=== PATIENT | male | born 1995 | race African-American/Black ===

== ENCOUNTER 2017-06-22 11:57 | Emergency (ER) | payer SELFPAY ==
--- NOTE | 2017-06-22 13:00 | EDM.PDOC ---
ED HPI GENERAL MEDICAL PROBLEM - General Chief Complaint: Syncope Stated Complaint: SYNCOPE Time Seen by Provider: 06/22/17 12:27 Source of Information: Reports: Patient, Other (Coworker) History Limitations: Reports: No Limitations - History of Present Illness INITIAL COMMENTS - FREE TEXT/NARRATIVE: Patient is a 21-year-old male who presents to the ED after experiencing a syncopal episode while working. 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 Got back up and felt dizzy again and a co worker helped by holding him against the fryer until he awoke. Patient does not believe he was completely unconscious. Co worker who was present does not believe he was as well. Patient was moving his head while being held. Patient did not bite his tongue nor have any incontinence to urine and/or stool. He has no history of seizures. Patient did not hit his head nor neck and denies any complaints. Patient has a long history of psych issues including: Schizophrenia, bipolar, anxiety/depression, and mood disorder. He is supposed to be on 12 different meds but discontinued these quite some time ago. Additional history includes asthma and sleep apnea. Patient is on no medications at this time. Surgical history: patient had upper left lobectomy as a child for unknown reason. Patient continues to smoke 1-2 packs a day. No alcohol use. Smokes marijuana frequently. Denies any other recreation drugs. - Related Data Allergies Allergy/AdvReac Type Severity Reaction Status Date / Time No Known Allergies Allergy Verified 06/22/17 12:12 Home Meds: Home Meds . [No Known Home Meds] 06/22/17 [History] Past Medical History HEENT History: Reports: Impaired Vision Other HEENT History: wears corrective lenses Gastrointestinal History: Reports: Other (See Below) Other Gastrointestinal History: gastro-ulcers Psychiatric History: Reports: Anxiety - Past Surgical History Respiratory Surgical History: Reports: Other (See Below) Other Respiratory Surgeries/Procedures: left lobectomy, patient states he has a quarter of his left lung remaining GI Surgical History: Reports: None Social & Family History - Tobacco Use Smoking Status *Q: Current Every Day Smoker Years of Tobacco use: 3 Packs/Tins Daily: 2 Used Tobacco, but Quit: No - Caffeine Use Caffeine Use: Reports: Soda - Recreational Drug Use Recreational Drug Use: No ED ROS GENERAL - Review of Systems Review Of Systems: See Below Constitutional: Denies: Fever, Chills, Weakness, Fatigue, Decreased Appetite HEENT: Reports: No Symptoms Respiratory: Reports: No Symptoms Cardiovascular: Reports: No Symptoms GI/Abdominal: Reports: No Symptoms : Reports: No Symptoms Musculoskeletal: Reports: No Symptoms Skin: Reports: No Symptoms Neurological: Reports: Syncope. Denies: Confusion, Dizziness, Headache, Numbness, Tingling, Difficulty Walking, Weakness Psychiatric: Reports: No Symptoms - Physical Exam Exam: See Below Exam Limited By: No Limitations General Appearance: Alert, WD/WN, No Apparent Distress Eye Exam: Bilateral Eye: EOMI, Normal Inspection, PERRL Ears: Hearing Grossly Normal Nose: Normal Inspection Throat/Mouth: Normal Inspection, Normal Oropharynx, Normal Voice, No Airway Compromise Head Exam: Atraumatic, Normocephalic Neck: Normal Inspection, Supple, Non-Tender, Full Range of Motion Respiratory/Chest: No Respiratory Distress, Lungs Clear, Normal Breath Sounds, No Accessory Muscle Use, Chest Non-Tender Cardiovascular: Normal Peripheral Pulses, Regular Rate, Rhythm, Systolic Murmur (2/6 appears to be mitral in origin. ) GI/Abdominal: Normal Bowel Sounds, Soft, Non-Tender, No Organomegaly Neuro Exam (Abbreviated): Alert, Oriented, CN II-XII Intact, Normal Cognition, No Motor/Sensory Deficits Back Exam: Normal Inspection, Vertebral Tenderness Extremities: Normal Inspection, Non-Tender, No Pedal Edema Psychiatric: Normal Affect, Normal Mood Skin Exam: Warm, Dry, Intact, Normal Color, No Rash Course - Vital Signs Last Recorded V/S: Last Vital Signs Temp 97.8 F 06/22/17 12:08 Pulse 70 06/22/17 12:08 Resp 18 06/22/17 12:08 BP 125/67 06/22/17 12:08 Pulse Ox 100 06/22/17 12:08 Orthostatic Blood Pressure [ 116/72 Standing] Orthostatic Blood Pressure [ 109/81 Sitting] Orthostatic Blood Pressure [ 125/67 Supine] - Orders/Labs/Meds Orders: Active Orders 24 hr Category Date Time Status EKG Documentation Completion [RC] STAT Care 06/22/17 12:27 Active Orthostatic Vital Signs [RC] ASDIRECTED Care 06/22/17 13:00 Active DRUG SCREEN, URINE [URCHEM] Stat Lab 06/22/17 13:37 Ordered Labs: Laboratory Tests 06/22/17 06/22/17 06/22/17 Range/Units 12:40 12:40 13:37 WBC 6.91 (4.23-9.07) K/mm3 RBC 4.93 (4.63-6.08) M/mm3 Hgb 14.8 (13.7-17.5) gm/L Hct 43.1 (40.1-51.0) % MCV 87.4 (79.0-92.2) fl MCH 30.0 (25.7-32.2) pg MCHC 34.3 (32.2-35.5) g/dl RDW Std Deviation 42.6 (35.1-43.9) fL Plt Count 222 (163-337) K/mm3 MPV 9.4 (9.4-12.3) fl Neutrophils % (Manual) 60 (40-60) % Band Neutrophils % 0 (0-10) % Lymphocytes % (Manual) 27 (20-40) % Atypical Lymphs % 0 % Monocytes % (Manual) 10 (2-10) % Eosinophils % (Manual) 1 (0.8-7.0) % Basophils % (Manual) 2 H (0.2-1.2) Platelet Estimate Adequate RBC Morph Comment Normal Sodium 138 (136-145) mEq/L Potassium 4.2 (3.5-5.1) mEq/L Chloride 104 (98-107) mEq/L Carbon Dioxide 28 (21-32) mEq/L Anion Gap 10.2 (5-15) BUN 12 (7-18) mg/dL Creatinine 0.9 (0.7-1.3) mg/dL Est Cr Clr Drug Dosing 122.41 mL/min Estimated GFR (MDRD) > 60 (>60) mL/min BUN/Creatinine Ratio 13.3 L (14-18) Glucose 98 (74-106) mg/dL Calcium 9.3 (8.5-10.1) mg/dL Total Bilirubin 0.5 (0.2-1.0) mg/dL AST 13 L (15-37) U/L ALT 14 L (16-63) U/L Alkaline Phosphatase 64 (46-116) U/L Total Protein 6.8 (6.4-8.2) g/dl Albumin 4.2 (3.4-5.0) g/dl Globulin 2.6 gm/dL Albumin/Globulin Ratio 1.6 (1-2) TSH 3rd Generation 0.835 (0.516-4.13) uIU/mL Urine Color (Yellow) Urine Appearance (Clear) Urine pH (5.0-8.0) Ur Specific [place] (1.005-1.030) Urine Protein (Negative) Urine Glucose (UA) (Negative) Urine Ketones (Negative) Urine Occult Blood (Negative) Urine Nitrite (Negative) Urine Bilirubin (Negative) Urine Urobilinogen (0.2-1.0) Ur Leukocyte Esterase (Negative) Urine RBC (0-5) /hpf Urine WBC (0-5) /hpf Ur Epithelial Cells (0-5) /hpf Urine Bacteria (FEW) /hpf Urine Mucus (FEW) /hpf Urine Opiates Screen Negative (NEGATIVE) Ur Buprenorphine Scrn Negative (NEGATIVE) Ur Oxycodone Screen Negative (NEGATIVE) Urine Methadone Screen Negative (NEGATIVE) Ur Propoxyphene Screen Negative (NEGATIVE) Ur Barbiturates Screen Negative (NEGATIVE) Ur Tricyclics Screen Negative (NEGATIVE) Ur Phencyclidine Scrn Negative (NEGATIVE) Ur Amphetamine Screen Negative (NEGATIVE) U Methamphetamines Scrn Negative (NEGATIVE) U Benzodiazepines Scrn Negative (NEGATIVE) U Cocaine Metab Screen Negative (NEGATIVE) U Marijuana (THC) Screen Negative (NEGATIVE) Ethyl Alcohol 0.00 (0.00) gm% 06/22/17 Range/Units 13:37 WBC (4.23-9.07) K/mm3 RBC (4.63-6.08) M/mm3 Hgb (13.7-17.5) gm/L Hct (40.1-51.0) % MCV (79.0-92.2) fl MCH (25.7-32.2) pg MCHC (32.2-35.5) g/dl RDW Std Deviation (35.1-43.9) fL Plt Count (163-337) K/mm3 MPV (9.4-12.3) fl Neutrophils % (Manual) (40-60) % Band Neutrophils % (0-10) % Lymphocytes % (Manual) (20-40) % Atypical Lymphs % % Monocytes % (Manual) (2-10) % Eosinophils % (Manual) (0.8-7.0) % Basophils % (Manual) (0.2-1.2) Platelet Estimate RBC Morph Comment Sodium (136-145) mEq/L Potassium (3.5-5.1) mEq/L Chloride (98-107) mEq/L Carbon Dioxide (21-32) mEq/L Anion Gap (5-15) BUN (7-18) mg/dL Creatinine (0.7-1.3) mg/dL Est Cr Clr Drug Dosing mL/min Estimated GFR (MDRD) (>60) mL/min BUN/Creatinine Ratio (14-18) Glucose (74-106) mg/dL Calcium (8.5-10.1) mg/dL Total Bilirubin (0.2-1.0) mg/dL AST (15-37) U/L ALT (16-63) U/L Alkaline Phosphatase (46-116) U/L Total Protein (6.4-8.2) g/dl Albumin (3.4-5.0) g/dl Globulin gm/dL Albumin/Globulin Ratio (1-2) TSH 3rd Generation (0.516-4.13) uIU/mL Urine Color Yellow (Yellow) Urine Appearance Clear (Clear) Urine pH 7.5 (5.0-8.0) Ur Specific [place] 1.015 (1.005-1.030) Urine Protein Negative (Negative) Urine Glucose (UA) Negative (Negative) Urine Ketones Negative (Negative) Urine Occult Blood Negative (Negative) Urine Nitrite Negative (Negative) Urine Bilirubin Negative (Negative) Urine Urobilinogen 0.2 (0.2-1.0) Ur Leukocyte Esterase Negative (Negative) Urine RBC Not seen (0-5) /hpf Urine WBC Not seen (0-5) /hpf Ur Epithelial Cells Not seen (0-5) /hpf Urine Bacteria Not seen (FEW) /hpf Urine Mucus Not seen (FEW) /hpf Urine Opiates Screen (NEGATIVE) Ur Buprenorphine Scrn (NEGATIVE) Ur Oxycodone Screen (NEGATIVE) Urine Methadone Screen (NEGATIVE) Ur Propoxyphene Screen (NEGATIVE) Ur Barbiturates Screen (NEGATIVE) Ur Tricyclics Screen (NEGATIVE) Ur Phencyclidine Scrn (NEGATIVE) Ur Amphetamine Screen (NEGATIVE) U Methamphetamines Scrn (NEGATIVE) U Benzodiazepines Scrn (NEGATIVE) U Cocaine Metab Screen (NEGATIVE) U Marijuana (THC) Screen (NEGATIVE) Ethyl Alcohol (0.00) gm% - Re-Assessments/Exams Free Text/Narrative Re-Assessment/Exam: Will obtain basic labs including: CBC, chem 14, urine drug tox, TSH, UA, serum EtOH, and also EKG. EKG sinus bradycardia at a rate of 58 with GA interval 165 and QTC 390. No acute ST changes noted. Orthostatic vitals: negative, patient had no symptoms. Labs reviewed: CBC and chemistry panel were essentially normal. TSH 0.835. Urine drug tox was negative. Serum EtOH is pending. Patient has been up and about with no issues. He was wrestling around with his friend while in the ED room awaiting for results. He has been drinking plenty of fluids. Urinated. He has no dizziness and or any additional complaints. Will discharge patient home with instructions as documented. Suspect cause of dizziness was related to a vasovagal episode. Due to heart murmur on examination with no clear diagnosis. Will go ahead and order an echocardiogram on a outpatient basis. Departure - Departure Time of Disposition: 14:02 Disposition: Home, Self-Care 01 Condition: Good Clinical Impression: Vasovagal syncope, Heart murmur, systolic - Discharge Information Instructions: Dehydration, Adult, [id number], Vasovagal Syncope, Adult Referrals: PCP,None [Primary Care Provider] - Forms: ED Department Discharge, ED Return to Work/School Form Additional Instructions: Heart murmur noted on physicial examination. Thus echocardiogram will be ordered on a outpatient basis. Believe cause of syncope/near syncopal episode was associated with a vasal vagal. Push the fluids. With body position changes allow some time for your body to obtain equilibrium if you become dizzy. Push the fluids. Eat a balanced diet. If you become dizzy sit back down or lay down and allow symptoms to subside. Refrain from smoking, using marijuana, and or alcohol use. Call and make an appointment this Friday to be evaluated and to establish care with a medical provider at [facility]. Return to the ED if you develop any new or worsening symptoms. - My Orders Last 24 Hours: My Active Orders 06/22/17 12:27 EKG Documentation Completion [RC] STAT 06/22/17 13:00 Orthostatic Vital Signs [RC] ASDIRECTED 06/22/17 13:37 DRUG SCREEN, URINE [URCHEM] Stat - Assessment/Plan Last 24 Hours: My Active Orders 06/22/17 12:27 EKG Documentation Completion [RC] STAT 06/22/17 13:00 Orthostatic Vital Signs [RC] ASDIRECTED 06/22/17 13:37 DRUG SCREEN, URINE [URCHEM] Stat
== END 2017-06-22 14:33 | disposition home or self-care (01) ==
LOC: JD.ED 11:57
DX: R55 Syncope and collapse (principal); R01.1 Cardiac murmur, unspecified; F17.210 Nicotine dependence, cigarettes, uncomplicated; F20.9 Schizophrenia, unspecified; F31.9 Bipolar disorder, unspecified
CPT/HCPCS: 36415; 80053; 80306; 81001; 84443; 85025; 93005; 99284; G0480

== ENCOUNTER 2017-12-07 12:48 | Emergency (ER) | payer OTHER ==
--- NOTE | 2017-12-07 13:11 | EDM.PDOC ---
ED HPI GENERAL MEDICAL PROBLEM - General Chief Complaint: Burn Stated Complaint: SPILLED HOT GREASE ON HISSELF Time Seen by Provider: 12/07/17 13:04 Source of Information: Reports: Patient History Limitations: Reports: No Limitations - History of Present Illness INITIAL COMMENTS - FREE TEXT/NARRATIVE: Patient is a 22-year-old male who states while working at [employer] he spilled 350 frying oil on his lower legs and feet. This occurred earlier this morning. States the bottom of his feet feel burn. States there is redness present and some also some mild swelling. He is wondering if he has secondary third-degree heart. Patient walked to the ED from [employer]. Tetanus status up -to-date. He offers no additional complaints. Lower Leg Pain Score (Numeric/FACES): 4 - Related Data Allergies Allergy/AdvReac Type Severity Reaction Status Date / Time No Known Allergies Allergy Verified 06/22/17 12:12 Home Meds: Home Meds . 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4 Gastrointestinal History: Reports: Other (See Below) Other Gastrointestinal History: gastro-ulcers Psychiatric History: Reports: Anxiety - Past Surgical History Respiratory Surgical History: Reports: Other (See Below) Other Respiratory Surgeries/Procedures: left lobectomy, patient states he has a quarter of his left lung remaining GI Surgical History: Reports: None Social & Family History - Tobacco Use Smoking Status *Q: Current Every Day Smoker Years of Tobacco use: 3 Packs/Tins Daily: 1 - Caffeine Use Caffeine Use: Reports: Coffee, Soda, Tea - Recreational Drug Use Recreational Drug Use: No ED ROS GENERAL - Review of Systems Review Of Systems: ROS reveals no pertinent complaints other than HPI. ED EXAM, BURN/SMOKE INHALATION - Physical Exam Exam: See Below Exam Limited By: No Limitations General Appearance: Alert, WD/WN, No Apparent Distress Ears (Abbreviated): Hearing Grossly Normal Respiratory: No Respiratory Distress, No Accessory Muscle Use Cardiovascular: Normal Peripheral Pulses, Regular Rate, Rhythm Peripheral Pulses: 2+: Posterior Tibial (L), Posterior Tibial (R), Dorsalis Pedis (L), Dorsalis Pedis (R) Extremities: Normal Inspection, Normal Range of Motion, Non-Tender, No Pedal Edema, Normal Capillary Refill Neurological: Alert, Oriented, CN II-XII Intact, Normal Cognition, No Motor/ Sensory Deficits Psychiatric: Normal Affect, Normal Mood Skin Exam: Warm, Dry, Intact, Normal Color, No Rash, Other (No heart on the feet and/or lower legs. No pain elicited with palpation. No blistering. No concerning findings.) Course - Vital Signs Last Recorded V/S: Last Vital Signs Temp 98.9 F 12/07/17 13:02 Pulse 76 12/07/17 13:02 Resp 20 12/07/17 13:02 BP 124/70 12/07/17 13:02 Pulse Ox 96 12/07/17 13:02 - Re-Assessments/Exams Free Text/Narrative Re-Assessment/Exam: On examination patient has no findings concerning for any form of a burn at this point. I suspect there is some skin irritation from having oil on his feet and walking. I have advised the patient to monitor for any worsening changes may follow up with PCP and/or return back to the ED if required. Patient had no questions concerns agree with the plan. Discharge instructions as documented. Departure - Departure Time of Disposition: 13:09 Disposition: Home, Self-Care 01 Condition: Good Clinical Impression: Skin irritation - Discharge Information Instructions: Burn Care, Adult, [id number] Referrals: PCP,None [Primary Care Provider] - Forms: ED Department Discharge, ED Return to Work/School Form Additional Instructions: On examination there is no obvious heart present. Suspect there is some slight irritation to the feet bilaterally secondary to the exposure to grease. There is no redness, blistering, no pain elicited with palpation. You walked to the ED for evaluation with no significant issues. Thus monitor for any worsening symptoms. If you do develop some redness to these areas may apply triple antibiotic ointment to the affected areas. Keep area clean and dry. Follow-up with PCP for reevaluation as needed. Return to the ED if you develop any new or worsening symptoms.
== END 2017-12-07 13:20 | disposition home or self-care (01) ==
LOC: JD.ED 12:48
DX: L98.9 Disorder of the skin and subcutaneous tissue, unspecified (principal); F17.210 Nicotine dependence, cigarettes, uncomplicated
CPT/HCPCS: 99283